=== PATIENT | female | born 1980 | race African-American/Black ===

== ENCOUNTER → 2016-05-05 | Outpatient (CLI) | payer MEDICAID ==
[~2016-05-05] MED LIST: METH250T PO; NOVONP2 SQ; NOVORP2 SQ; PNV-TAB PO
== END ==
LOC: HPND 10:04
PROVIDERS: ATTEND Obstetrics & Gynecology
DX: O24.113 Pre-existing type 2 diabetes mellitus, in pregnancy, third trimester (principal); O99.283 Endocrine, nutritional and metabolic diseases complicating pregnancy, third trimester; O10.913 Unspecified pre-existing hypertension complicating pregnancy, third trimester; Z3A.29 29 weeks gestation of pregnancy
CPT/HCPCS: 76811; 76819; 76820; 76821; 76825; 76827; 93325